=== PATIENT | female | born 2000 | race Caucasian/White ===

== ENCOUNTER 2018-12-30 22:31 | Emergency (ER) | payer OTHER ==
[~2018-12-30] VITALS: Ht 162.6 cm; Wt 84.8 kg
[2018-12-30 22:34] VITALS: Ht 162.6 cm; Wt 84.8 kg
[2018-12-30 23:39] VITALS: BP 117/67
== END 2018-12-30 23:39 | disposition home or self-care (01) ==
LOC: ED 22:31
DX: S09.8XXA Other specified injuries of head, initial encounter (principal); V00.131A Fall from skateboard, initial encounter; Y93.51 Activity, roller skating (inline) and skateboarding; Y92.89 Other specified places as the place of occurrence of the external cause; Y99.8 Other external cause status